=== PATIENT | female | born 1985 | race Caucasian/White ===

== ENCOUNTER 2018-11-27 10:13 | Outpatient (CLI) | payer SELFPAY | END 2018-11-27 10:14 | disposition home or self-care (01) | LOC: C.RADH 10:13 | DX: M54.9 Dorsalgia, unspecified (principal) ==

== ENCOUNTER 2019-02-02 10:41 | Outpatient (CLI) | payer SELFPAY | END 2019-02-02 10:42 | disposition home or self-care (01) | LOC: C.LAB 10:41 | DX: Z00.00 Encounter for general adult medical examination without abnormal findings (principal); M54.9 Dorsalgia, unspecified ==

== ENCOUNTER 2019-02-16 10:12 | Outpatient (CLI) | payer SELFPAY | END 2019-02-16 10:13 | disposition home or self-care (01) | LOC: C.LAB 10:12 | DX: N64.52 Nipple discharge (principal) ==

== ENCOUNTER 2019-02-19 14:24 | Outpatient (CLI) | payer OTHER | END 2019-02-19 14:25 | disposition home or self-care (01) | LOC: C.USIC 14:24 ==

== ENCOUNTER 2019-02-21 10:30 | Outpatient (CLI) | payer OTHER | END 2019-02-21 10:31 | disposition home or self-care (01) | LOC: C.USIC 10:30 | DX: N64.52 Nipple discharge (principal) ==